=== PATIENT | female | born 1955 | race Two or more races ===

== ENCOUNTER 2022-01-09 06:03 | Day surgery (SDC) | payer OTHER | END 2022-01-09 11:10 | disposition home or self-care (01) | LOC: AMB-ENDOS 06:03 | PROVIDERS: ATTEND Surgery | DX: D12.2 Benign neoplasm of ascending colon (principal); D12.5 Benign neoplasm of sigmoid colon; K57.90 Diverticulosis of intestine, part unspecified, without perforation or abscess without bleeding; I10 Essential (primary) hypertension; Z20.822 Contact with and (suspected) exposure to COVID-19 ==